=== PATIENT | male | born 1960 | race Caucasian/White ===

== ENCOUNTER 2020-03-31 09:32 | Outpatient (CLI) | payer OTHER, SELFPAY ==
--- NOTE | 2020-04-05 13:16 | WPDPFTINT ---
PFT Interpretation PFT Interpretation: This PFT met all criteria for ATS standards and reproducibility FEV/FVC pre bronchodilator 69% FEV1 77% or 2.60 liters FVC 79% or 3.73 liters TLC 90% RV 98% RV/TLC 37% DLCO 79% when adjusted for alveolar volume but not adjusted for hemoglobin Flow volume loops showed some expiratory coving Impression: Mild to moderate airflow obstruction with mildly decreased diffusion capacity. This pattern is suggestive of COPD. Clinical correlation is advised.
== END 2020-03-31 09:33 | disposition home or self-care (01) ==
PROVIDERS: PCP Family Medicine; Visit Provider Physician Assistant
DX: R06.00 Dyspnea, unspecified (principal); Z87.891 Personal history of nicotine dependence; R94.2 Abnormal results of pulmonary function studies
CPT/HCPCS: 94060; 94726; 94729

== ENCOUNTER → 2020-04-13 08:43 | Outpatient (CLI) | payer OTHER, SELFPAY ==
--- NOTE | ~2020-04-13 | CT_ITS ---
EXAMINATION:CT lung screening DATE: 04/13/2020 09:02 INDICATION: Personal history of tobacco dependence. Smoker who quit 14 years ago with 60 pack year hi story. TECHNIQUE: Computed tomography (CT) of the chest was performed without intravenous contrast. Automate d exposure control and iterative reconstruction technique were employed. The dose-length product (DLP ) was 409.00 mGy-cm. COMPARISON: CT abdomen and pelvis 12/02/2012 FINDINGS: There is mild emphysema. There is a 3 mm nodule in right lower lobe. No pleural effusion. T he heart size is normal. No pericardial effusion. There is diffuse hepatic steatosis. There are bernard es of cholecystectomy. There is mild thoracic spondylosis. IMPRESSION: 1. Lung-RADS category 2: Benign appearance or behavior. Continue annual screening with noncontrast lo w-dose chest CT in 12 months. Reviewed, dictated and finalized at location A. IMPRESSION: 1. Lung-RADS category 2: Benign appearance or behavior. Continue annual screeni ng with noncontrast low-dose chest CT in 12 months.
== END ==
PROVIDERS: PCP Family Medicine; Visit Provider Physician Assistant
DX: Z12.2 Encounter for screening for malignant neoplasm of respiratory organs (principal); Z87.891 Personal history of nicotine dependence
CPT/HCPCS: G0297

== ENCOUNTER 2020-05-26 02:14 | Outpatient (CLI) | payer OTHER, SELFPAY ==
[2020-05-26 18:46] LABS: SARS-CoV-2 RNA PCR Negative
== END 2020-05-26 02:15 | disposition home or self-care (01) ==
LOC: ANHCOVIDDT 02:14
PROVIDERS: PCP Family Medicine; Visit Provider Internal Medicine Gastroenterology
DX: Z01.812 Encounter for preprocedural laboratory examination (principal); Z20.828 Contact with and (suspected) exposure to other viral communicable diseases
CPT/HCPCS: 87635; C9803; U0003

== ENCOUNTER 2020-05-29 01:25 | Day surgery (SDC) | payer OTHER, SELFPAY ==
[2020-05-24 10:22] VITALS: BMI 43.0
[2020-05-29 06:20] VITALS: BP 156/90; PULSE 97; RESP 20; TEMP 36.4; O2SAT 95
[2020-05-29 06:23] VITALS: BMI 42.5
[2020-05-29] MEDS: LACTATED RINGERS 1,000 ML 150 ML IV CONT (06:34)
--- NOTE | 2020-05-29 06:41 | WPDANESEPPF ---
Anes - Initial Pre Proc Eval Procedure: Operation Date: 05/29/20 07:30 Proposed Procedures p Screening Colonoscopy - Zacarias Dang MD Date/Time: 05/29/20 06:41 Surgeon: Zacarias Dang MD Pre Op Diagnosis: neoplasm screening Patient Data Age: 59 Gender: M Height: 5 ft 10 in Weight: 134.5 kg Allergies Allergy/AdvReac Type Severity Reaction Status Date / Time No Known Allergies Allergy Verified 05/29/20 06:22 Home Medications Medication Instructions Recorded Confirmed Type losartan 50 mg-hydrochlorothiazide 1 tablet PO DAILY #90 tablet 04/07/20 05/24/20 Rx 12.5 mg tablet fluticasone fur. 100 mcg-umeclid 1 inh INHALATION DAILY #60 ea 04/24/20 05/24/20 Rx 62.5 mcg-vilant 25 mcg inhalat.powder albuterol sulfate 1 puff INHALATION PRN PRN 05/24/20 05/24/20 History naproxen sodium [Aleve] 220 mg PO BID PRN 05/24/20 05/24/20 History Patient hx anesthesia problems: none Family hx anesthesia problems: none PMFSH Past Medical History Medical History Elevated blood pressure reading in office without diagnosis of hypertension History of tobacco use Surgical History Surgical History History of laparoscopic cholecystectomy History of repair of anterior cruciate ligament of left knee History of umbilical hernia repair Hx of meniscectomy of right knee Family History Family History Mother Patient's mother is in good health Other Family history of thyroid disease Hypertension Social History Social History Social History: Smoking packs per day: 1.5 Smoking cigarettes per day: 30.0 Years smoked: 40 Smoking pack-years: 60.00 Smoking status: Former smoker Tobacco type: cigarettes Second hand tobacco smoke exposure: No Smoking end date: 06/16/15 Alcohol intake: never Substance use: never Substance use type: does not use Living arrangements: with family Gender identity (if verbalized by the patient): Male Spiritual care concerns: No Anes - Eval Final PreProcedure Day of Procedure 05/29/20 06:41 Patient weight: morbidly obese Heart: regular rate and rhythm Lungs: clear to auscultation Airway: Mallampati scale class II Neurological: alert and oriented Last oral intake: >/= 8 hours ASA classification: III Emergent: no Anesthetic plan: proceed Anesthesia type and monitoring: general GIVS and standard monitoring Informed Consent: The patient's anesthetic plan and its attendant risks and benefits were discussed with the patient/family/POA. Questions were solicited and answers provided to the satisfaction of the patient/family/POA.
--- NOTE | 2020-05-29 07:36 | PM.HPGS ---
History of Present Illness History of Present Illness Consent: Risks, benefits, and alternatives have been discussed and questions answered. Patient agrees to proceed with procedure. Chief complaint: neoplasm screening Narrative: Sheldon Caldwell is a 59 year old male with last colonoscopy 8 years ago Review of Systems Constitutional: Constitutional: Denies headache(s) and Denies weakness Eyes: Eyes: Denies blurry vision ENT: Reports Normal hearing present, Denies headache(s) and Denies neck pain Cardiovascular: Cardiovascular: Denies chest pain and Denies dyspnea Respiratory: Respiratory: Denies dyspnea Gastrointestinal: Gastrointestinal: Reports no additional gastrointestinal complaints Genitourinary: Genitourinary: Denies dysuria Musculoskeletal: Musculoskeletal: Denies neck pain Integumentary/Breasts: Skin/Breast: Denies dry skin Neurologic: Reports Normal hearing present, Denies headache(s) and Denies weakness Psychiatric: Psychiatric: Denies anxiety Endocrine: Endocrine: Denies change in body appearance Hematologic/Lymphatic: Hematologic/Lymphatic: Denies easy bleeding Allergic/Immunologic: Allergic/Immunologic: Denies urticaria PMFSH Past Medical History Medical History Elevated blood pressure reading in office without diagnosis of hypertension History of tobacco use Surgical History Surgical History History of laparoscopic cholecystectomy History of repair of anterior cruciate ligament of left knee History of umbilical hernia repair Hx of meniscectomy of right knee Family History Family History Mother Patient's mother is in good health Other Family history of thyroid disease Hypertension Social History Social History Social History: Smoking packs per day: 1.5 Smoking cigarettes per day: 30.0 Years smoked: 40 Smoking pack-years: 60.00 Smoking status: Former smoker Tobacco type: cigarettes Second hand tobacco smoke exposure: No Smoking end date: 06/16/15 Alcohol intake: never Substance use: never Substance use type: does not use Living arrangements: with family Gender identity (if verbalized by the patient): Male Spiritual care concerns: No Meds Home Medications and Allergies Home Medications Medication Instructions Recorded Confirmed Type losartan 50 mg-hydrochlorothiazide 1 tablet PO DAILY #90 tablet 04/07/20 05/24/20 Rx 12.5 mg tablet fluticasone fur. 100 mcg-umeclid 1 inh INHALATION DAILY #60 ea 04/24/20 05/24/20 Rx 62.5 mcg-vilant 25 mcg inhalat.powder albuterol sulfate 1 puff INHALATION PRN PRN 05/24/20 05/24/20 History naproxen sodium [Aleve] 220 mg PO BID PRN 05/24/20 05/24/20 History Allergies Allergy/AdvReac Type Severity Reaction Status Date / Time No Known Allergies Allergy Verified 05/29/20 06:22 Exam Const: General: comfortable and no acute distress HENMT: General nose exam: Normal nares present Eyes: General: appearance normal, both eyes and all related structures Neck: Neck: no JVD Resp: Auscultation: clear to auscultation bilaterally Cardio: Rate: regular rate Rhythm: regular rhythm GI: Inspection: non-distended GI Palp: Yes Soft to palpation Skin: General skin exam: normal color Neuro: General: gait normal Speech: normal speech Extrem: General: normal to inspection Psych: Mental Status: mental status grossly normal Assessment and Plan Assessment and plan (1) Colon cancer screening: Code(s): Z12.11 - Encounter for screening for malignant neoplasm of colon Status: Acute Assessment and Plan: will proceed with colonoscopy
[2020-05-29 08:05] VITALS: BP 101/48; PULSE 96; RESP 17; O2SAT 99
[2020-05-29 08:15] VITALS: BP 107/66; PULSE 88; RESP 19; O2SAT 98
[2020-05-29 08:25] VITALS: BP 125/53; PULSE 82; RESP 20; O2SAT 97
== END 2020-05-29 08:33 | disposition home or self-care (01) ==
PROVIDERS: PCP Family Medicine; Visit Provider Internal Medicine Gastroenterology
PROC: 0DJD8ZZ Inspection of Lower Intestinal Tract, Via Natural or Artificial Opening Endoscopic (ICD-10-PCS; CPT 45378; principal; 2020-05-29 07:30)
DX: Z12.11 Encounter for screening for malignant neoplasm of colon (principal); K57.30 Diverticulosis of large intestine without perforation or abscess without bleeding; K64.8 Other hemorrhoids; K63.5 Polyp of colon; Z79.51 Long term (current) use of inhaled steroids; Z87.891 Personal history of nicotine dependence; E66.9 Obesity, unspecified; Z68.41 Body mass index [BMI] 40.0-44.9, adult
CPT/HCPCS: 45380; 88305; J2704; J7120

== ENCOUNTER → 2020-11-15 00:46 | Outpatient (CLI) | payer OTHER, SELFPAY ==
[2020-11-15 17:41] LABS: SARS-CoV-2 RNA PCR Negative
== END ==
PROVIDERS: PCP Family Medicine; Visit Provider Internal Medicine Critical Care Medicine
DX: Z01.812 Encounter for preprocedural laboratory examination (principal); Z20.822 Contact with and (suspected) exposure to COVID-19
CPT/HCPCS: C9803; U0003; U0005

== ENCOUNTER 2020-11-17 07:26 | Outpatient (CLI) | payer OTHER, SELFPAY ==
--- NOTE | 2020-12-11 08:28 | WPDSLEEPSTUD ---
Sleep Study Date of Study: 11/17/20 Ordering Provider: Laina Grider PA-C Interpreting Physician: Jayne Marks MD Sleep Study Type: Split Polysomnogram Height: 1.52 m Weight: 131.542 kg Body Mass Index: 56.6 Neck Circumference (inches): 20.5 Colony: 17 Reason for Sleep Study Poor quality sleep, tired in the day. Sleep History Sheldon Calwdell is a 60 yo man who rarely awakens from sleep feeling short of breath. He occasionally awakens at night with heartburn belching or coughing. he constantly snores and frequently this is loud enough that others complain. He occasionally has trouble sleep with a cold. Occasionally wakes up gasping for breath at night. He frequently has breathing problems at night observed by others. He occasionally sweats excessively at night. He rarely notices his heart pounding or beating irregularly at night. He occasionally falls asleep during the day, frequently falls asleep involuntarily and rarely falls asleep while driving. He does not fall asleep while exerting physical effort. He rarely has loss of muscle tone with strong emotion. He rarely has daytime difficulty at work due to excessive sleepiness. He does not feel paralyzed on waking or falling asleep. He occasionally has vivid dreamlike scenes upon awakening or falling asleep. He rarely feels afraid to go to sleep. He rarely has nightmares. He occasionally remembers his dreams. He constantly has racing thoughts. He rarely feels sad or depressed. He occasionally has anxiety, muscular tension, occasionally notices parts of his body jerking he occasionally kicks at night. He frequently has crawling and aching feelings in his legs and frequently has leg pain during the night. He rarely has morning jaw pain. He rarely grinds his teeth during sleep. He frequently is bothered by pain during the day, frequently awakened by pain at night and frequently wakes up feeling stiff in the morning. Occasionally wakes up with sore achy muscles. He frequently wakes up with pain in the neck and spine. He has fatigue and sexual problems. Normal bedtime is between 9:00 p.m. and 7:00 p.m. falling asleep on the couch in just a few minutes. He wakes once at night moving from the couch to the bed. During that awakening he goes to the bathroom, sits up on the couch and looks at his phone for a short time before returning to sleep. he wakes in the morning at 5:00 a.m.. On the weekends, he goes to bed later, 11:00 p.m. to 12 midnight and wakes between 6:00 a.m. and 7:00 a.m.. He estimates getting 3-4 hours of sleep but sometimes as many as 7-8 hours. He awakens every hour. He takes naps in the afternoon or evening. Sometimes a short nap can be refreshing. He feels better in the morning compared other times of day Habits: Quit tobacco for 14 years ago. Caffeine 2-3 cups of coffee a day. Alcohol 8-10 beverages 1 to 2 times a month. No recreational drugs. [facility] Past Medical History Medical History (Updated 12/11/20 @ 08:56 by Jayne Marks MD) Colon cancer screening COPD (chronic obstructive pulmonary disease) History of tobacco use HTN (hypertension) Prediabetes Surgical History Surgical History History of laparoscopic cholecystectomy History of repair of anterior cruciate ligament of left knee History of umbilical hernia repair Hx of meniscectomy of right knee Family History Family History Mother Patient's mother is in good health Other Family history of thyroid disease Hypertension Social History Social History (Updated 10/19/20 @ 16:10 by Karis Moreno CMA) Social History: Smoking packs per day: 1.5 Smoking cigarettes per day: 30.0 Years smoked: 40 Smoking pack-years: 60.00 Tobacco type: cigarettes Second hand tobacco smoke exposure: No Smoking end date: 06/16/15 Alcohol intake:
[2020-12-11 08:31] VITALS: BMI 56.6
== END 2020-11-18 07:21 | disposition home or self-care (01) ==
LOC: ANHCSM 07:27
PROVIDERS: PCP Family Medicine; Visit Provider Physician Assistant
DX: F51.8 Other sleep disorders not due to a substance or known physiological condition (principal); G47.10 Hypersomnia, unspecified; G47.33 Obstructive sleep apnea (adult) (pediatric)
CPT/HCPCS: 95811

== ENCOUNTER 2021-04-23 15:46 | Outpatient (CLI) | payer OTHER, SELFPAY ==
--- NOTE | ~2021-04-23 | CT_ITS ---
EXAMINATION:CT lung screening DATE: 04/23/2021 16:04 INDICATION: Personal history of nicotine dependence. Smoker who quit 5.5 years ago with 40 pack year history. TECHNIQUE: Computed tomography (CT) of the chest was performed without intravenous contrast. Automate d exposure control and iterative reconstruction technique were employed. The dose-length product (DLP ) was 361.31 mGy-cm. COMPARISON: Chest CT 04/13/2020 FINDINGS: There is mild emphysema. There is mild atelectasis in lingula. There are multiple 1-2 mm no dules in the lungs. There is a stable 3 mm nodule in right lower lobe. There is a stable 5 mm nodule in left upper lobe. No pleural effusion. The heart size is normal. No pericardial effusion. There is moderate thoracic spondylosis. There is a hemangioma in T7 vertebral body. IMPRESSION: 1. Lung-RADS category 2: Benign appearance or behavior. Continue annual screening with noncontrast lo w-dose chest CT in 12 months. Reviewed, dictated and finalized at location A. HANDISE COLLECTOR IMPRESSION: 1. Lung-RADS category 2: Benign appearance or behavior. Continue annual screeni ng with noncontrast low-dose chest CT in 12 months.
== END 2021-04-23 15:47 ==
PROVIDERS: PCP Physician Assistant; Visit Provider Physician Assistant
DX: Z12.2 Encounter for screening for malignant neoplasm of respiratory organs (principal); Z87.891 Personal history of nicotine dependence
CPT/HCPCS: 71271

== ENCOUNTER 2021-08-14 09:52 | Outpatient (CLI) | payer OTHER, SELFPAY ==
--- NOTE | ~2021-08-14 | XR_ITS ---
XR foot LT standing 2V DATE: 08/14/2021 11:07 INDICATION: Osteoarthritis TECHNIQUE: Weight bearing AP and lateral views COMPARISON: None FINDINGS: Plantar and posterior moderate calcaneal enthesopathy, without associated erosive change or periostitis. There is moderate osteoarthritic change at the tibiotalar joint and mild osteoarthritis at the first metatarsophalangeal joint. No fracture or dislocation, periosteal reaction or bone destruction. No erosive changes. IMPRESSION: Plantar and posterior calcaneal enthesopathy Osteoarthritic change at tibiotalar and first metatarsophalangeal joints Reviewed, dictated and finalized at location A. ROOM GEAR MACHINE OPERATOR
--- NOTE | ~2021-08-14 | XR_ITS ---
XR sacroiliac joints min 3V DATE: 08/14/2021 11:07 INDICATION: Pain. Osteoarthritis. TECHNIQUE: AP and bilateral oblique views COMPARISON: None FINDINGS: There is mild degenerative change at the sacroiliac joints. No fracture or dislocation, ero sive change or ankylosis. No pelvic fracture or bone destruction is detected. IMPRESSION: Mild degenerative change Reviewed, dictated and finalized at Location A. Reviewed, dictated and finalized at location A. Y PAINTING MACHINE OPERATOR IMPRESSION: Mild degenerative change
--- NOTE | ~2021-08-14 | XR_ITS ---
XR hand BI arthritis min 3V DATE: 08/14/2021 11:07 INDICATION: Pain. Osteoarthritis. TECHNIQUE: 4 views of each hand. COMPARISON: None FINDINGS: Old healed boxer's fracture deformity of the right fifth metacarpal neck. No recent fracture or dislocation, periosteal reaction or bone destruction or erosive change. Mild bilateral osteoarthritis. IMPRESSION: Mild osteoarthritis Reviewed, dictated and finalized at location A. MANAGEMENT MANAGER IMPRESSION: Mild osteoarthritis
--- NOTE | ~2021-08-14 | XR_ITS ---
XR foot RT standing 2V DATE: 08/14/2021 11:07 INDICATION: Pain. Osteoarthritis. TECHNIQUE: Weight bearing AP and lateral views COMPARISON: None FINDINGS: There is plantar and posterior calcaneal enthesopathy. There is mild osteoarthritis. There is a submillimeter radiopacity overlying the second metatarsophalangeal joint, possibly an intr a-articular loose body. No fracture or dislocation, periosteal reaction or bone destruction. IMPRESSION: Plantar and posterior calcaneal enthesopathy Mild osteophyte is at first metatarsophalangeal joint Possible radiopaque loose body at second metatarsophalangeal joint Reviewed, dictated and finalized at location A. SH BLENDER
--- NOTE | 2021-08-14 14:13 | WPDPFTINT ---
PFT Procedure Performed PFT Procedure Performed Plethysmography (Lung Vol) Diffusing Cap (DLCO) Flow Vol Loop Spirometry w/o Bronchodil PFT Interpretation Lung volumes were measured with the body plethysmography method. Lung volumes are unremarkable. Spirometry showed diminished expiratory flow rates and a borderline FEV1 to FVC ratio of 70%, consistent with mild airway obstruction. No bronchodilator study was carried out. The lung diffusion capacity is within normal range. In comparison to previous study in 03/2020, there has been no significant change in FVC, FEV1, TLC or DLCO. Impression: Probable mild obstructive airway disease, unchanged since 2019.
== END 2021-08-14 09:53 | disposition home or self-care (01) ==
PROVIDERS: PCP Family Medicine; Visit Provider Nurse Practitioner Gerontology
DX: M19.90 Unspecified osteoarthritis, unspecified site (principal); R06.02 Shortness of breath; M19.041 Primary osteoarthritis, right hand; M19.042 Primary osteoarthritis, left hand; M53.3 Sacrococcygeal disorders, not elsewhere classified; M77.31 Calcaneal spur, right foot; M19.071 Primary osteoarthritis, right ankle and foot
CPT/HCPCS: 72202; 73130; 73620; 94375; 94726; 94729

== ENCOUNTER 2022-08-13 16:16 | Outpatient (CLI) | payer OTHER, SELFPAY ==
--- NOTE | ~2022-08-13 | CT_ITS ---
EXAMINATION: CT abdomen pelvis wo con DATE: 08/13/2022 16:39 INDICATION: Abdomen pain TECHNIQUE: Computed tomography (CT) of the abdomen and pelvis was performed without intravenous contr ast. The dose-length product was 1611.33 mGy-cm. Automated exposure control and iterative reconstruct ion technique were employed. COMPARISON: CT dated 12/02/2012 FINDINGS: No significant pleural or pericardial effusion. Heart size normal. Fatty infiltration of th e liver. Status post cholecystectomy. The spleen, pancreas, adrenal glands and and kidneys are unrema rkable. Nonobstructive bowel gas pattern. No free air or free fluid. No abnormal pelvic masses or flu id collections. Nonobstructive bowel pattern. No acute bone or joint abnormality. No renal/ureteral s tones or hydronephrosis. IMPRESSION: 1. No acute abdominal abnormality. Reviewed, dictated and finalized at location B. STIGATOR OPERATOR
== END 2022-08-13 16:17 | disposition home or self-care (01) ==
PROVIDERS: PCP Family Medicine; Visit Provider Nurse Practitioner Gerontology
DX: R10.9 Unspecified abdominal pain (principal)
CPT/HCPCS: 74176

== ENCOUNTER 2023-05-14 01:24 | Day surgery (SDC) | payer OTHER, SELFPAY ==
[2023-05-05 12:20] VITALS: BMI 43.0
--- NOTE | 2023-05-05 12:27 | PC.NURSE ---
Report to the Outpatient Waiting Room, entrance under the green pavilion located off [facility], at time 1000 on date 05/14/23. Planned Procedure Time: 1100. Time changes happen often and if your time is changed the preop area will call you the afternoon before. - You and your visitor will be asked to self-screen and do not enter if you have any COVID symptoms. - A mask is optional within the hospital at this time. Patients may have LIGHT BREAKFAST. Take the following medications with a SIP of water the morning of surgery: PRESCRIBED DO NOT STOP ANY OF YOUR OTHER PRESCRIPTION MEDICATIONS PRIOR TO SURGERY ?EXCEPT THE FOLLOWING Medications to discontinue per physician: N/A Date to take last dose: N/A Please no make-up, nail rwandan, hairspray, perfume, deodorant, or body powder the day of surgery. No jewelry (including any body piercings) or valuables the day of surgery, leave them at home. Please take a shower or bath the night before, or the morning of, surgery with an antibacterial soap. Wear comfortable, loose fitting clothing. - Jewelry must be removed prior to entering the operating room. Rings and piercings that are not removed may be cut off. - The hospital will not accept responsibility for valuables. - Please leave all valuables, including medications, at home the day of surgery. YOU MAY DRIVE YOURSELF HOME AFTER SURGERY. Follow any additional instructions given to you from your surgeon. If you or anyone in your household have experienced Covid symptoms in the past week, please notify your surgeon or the nurse liaison at the phone number below for possible testing. Telephone instructions given to PT - DANETTE MIRZA and asked if any additional questions and then verbalized understanding. Patient advised to call surgeon office or pre surgery nurse liaison [phone] if any additional questions.
[2023-05-14 06:45] VITALS: BP 133/81; PULSE 101; RESP 16; TEMP 36.2; O2SAT 97
--- NOTE | 2023-05-14 07:23 | WPDHPUPDATE1 ---
History and Physical Update Update Date/Time: 05/14/23 07:23 History and Physical has been reviewed, including an updated exam of the patient. There are NO changes in the patient's condition. Risks, benefits, and alternatives have been discussed and questions answered. Patient agrees to proceed with procedure.
[2023-05-14 07:35] VITALS: BP 148/82; PULSE 95; RESP 20; O2SAT 99
[2023-05-14 07:45] VITALS: BP 152/83; PULSE 98; O2SAT 99
[2023-05-14] MEDS: LIDO 1%/EPINEPHRINE 1:100,000 50 ML VIAL INFILTRATE (07:52)
[2023-05-14] MEDS: BACITRACIN OINTMENT 15 GM TUBE 1 APPLIC TOPICAL (07:53)
[2023-05-14 07:55] VITALS: BP 153/94; PULSE 87; O2SAT 99
[2023-05-14 08:03] VITALS: BP 127/80; PULSE 87; O2SAT 99
[2023-05-14 08:11] VITALS: BP 139/86; PULSE 86; RESP 18; O2SAT 99
--- NOTE | 2023-05-14 08:15 | W.PM.PROC2 ---
Procedure Note - Detailed Date of Procedure 05/14/23 Pre-op Diagnosis right Carpal Tunnel syndrome Post-op Diagnosis Same Procedure Performed Right open carpal tunnel release Surgeon Mansoor Hutchinson MD Anesthesia Local Description of Procedure The patient's right volar wrist was marked with his consent in the holding area. He was taken to the operating room where he was placed supine on the operating table. The extremity was prepped draped usual fashion. A time-out was held and confirmed. The site was marked for incision and locally infiltrated with 1% lidocaine with epinephrine. The tourniquet was inflated to 250 mmHg. The incision was made as marked. Blunt dissection revealed the palmar aponeurosis this and the transverse retinaculum were incised with a 15. Blade. Some local anesthetic was a reintroduced at that level. The retinaculum was divided with a 15 blade and scissors. A complete release was achieved. There was no unusual anatomy noted. The tourniquet was released at 8 minutes and the skin wound closed with interrupted 4-0 nylon suture. The usual bandage was applied. The is discharged home with instructions of wound care and follow-up as a prescription for hydrocodone 5/325 6. Estimated Blood Loss 5 Tourniquet Time 8 Drains No Packing No Pathology None sent Complications No immediate complications Condition Stable Disposition Same day
== END 2023-05-14 08:38 | disposition home or self-care (01) ==
PROVIDERS: PCP Family Medicine; Visit Provider Plastic Surgery
PROC: (CPT 64721; principal; 2023-05-14 07:30)
DX: G56.01 Carpal tunnel syndrome, right upper limb (principal); K21.9 Gastro-esophageal reflux disease without esophagitis; Z90.49 Acquired absence of other specified parts of digestive tract
CPT/HCPCS: 64721; A9270

== ENCOUNTER 2023-06-04 01:58 | Day surgery (SDC) | payer OTHER, SELFPAY ==
--- NOTE | 2023-05-29 14:36 | PC.NURSE ---
Report to the Outpatient Waiting Room, entrance under the green pavilion located off [facility], at time 1000 on date 06/04/23. Planned Procedure Time: 1100. Time changes happen often and if your time is changed the preop area will call you the afternoon before. - You and your visitor will be asked to self-screen and do not enter if you have any COVID symptoms. - A mask is optional within the hospital at this time. Patients may have LIGHT BREAKFAST Take the following medications with a SIP of water the morning of surgery: PRESCRIBED DO NOT STOP ANY OF YOUR OTHER PRESCRIPTION MEDICATIONS PRIOR TO SURGERY ?EXCEPT THE FOLLOWING Medications to discontinue per physician: N/A Date to take last dose: N/A Please no make-up, nail gabonese, hairspray, perfume, deodorant, or body powder the day of surgery. No jewelry (including any body piercings) or valuables the day of surgery, leave them at home. Please take a shower or bath the night before, or the morning of, surgery with an antibacterial soap. Wear comfortable, loose fitting clothing. - Jewelry must be removed prior to entering the operating room. Rings and piercings that are not removed may be cut off. - The hospital will not accept responsibility for valuables. - Please leave all valuables, including medications, at home the day of surgery. YOU MAY DRIVE YOURSELF HOME AFTER SURGERY. Follow any additional instructions given to you from your surgeon. If you or anyone in your household have experienced Covid symptoms in the past week, please notify your surgeon or the nurse liaison at the phone number below for possible testing. Telephone instructions given to PT - DANETTE MIRZA and asked if any additional questions and then verbalized understanding. Patient advised to call surgeon office or pre surgery nurse liaison [phone] if any additional questions.
[2023-05-29 14:38] VITALS: BMI 44.0
--- NOTE | 2023-06-04 07:20 | WPDHPUPDATE1 ---
History and Physical Update Update Date/Time: 06/04/23 07:20 History and Physical has been reviewed, including an updated exam of the patient. There are NO changes in the patient's condition. Risks, benefits, and alternatives have been discussed and questions answered. Patient agrees to proceed with procedure.
--- NOTE | 2023-06-04 07:21 | WPDHPUPDATE1 ---
History and Physical Update Update Date/Time: 06/04/23 07:21 History and Physical has been reviewed, including an updated exam of the patient. There are NO changes in the patient's condition. Risks, benefits, and alternatives have been discussed and questions answered. Patient agrees to proceed with procedure.
[2023-06-04 09:06] VITALS: BP 137/84; PULSE 79; RESP 14; O2SAT 97
[2023-06-04] MEDS: LIDO 1%/EPINEPHRINE 1:100,000 50 ML VIAL INFILTRATE (09:15)
[2023-06-04 09:16] VITALS: BP 147/93; PULSE 79; RESP 14; O2SAT 97
[2023-06-04 09:23] VITALS: BP 126/88; PULSE 78; RESP 16; TEMP 36; O2SAT 99
[2023-06-04 09:26] VITALS: BP 135/84; PULSE 79; RESP 14; O2SAT 98
[2023-06-04 09:30] VITALS: BP 148/82; PULSE 75; RESP 18; O2SAT 100
--- NOTE | 2023-06-04 09:48 | W.PM.PROC2 ---
Procedure Note - Detailed Date of Procedure 06/04/23 Pre-op Diagnosis Left Carpal Tunnel Syndrome Post-op Diagnosis Same Procedure Performed Left open carpal tunnel release Surgeon Mansoor Hutchinson MD Anesthesia Local Description of Procedure The left carpal tunnel wound was marked on the patient waiting in the holding area with his consent. He was taken to the operating room where he was placed supine on the operating table. The left upper extremity was prepped and draped in usual fashion. The time-out was held and confirmed. Site was marked for the incision and locally infiltrated with 1% lidocaine with epinephrine. Approximately 6 minutes was allowed for hemostatic effect. The incision was made as marked without the use of tourniquet. Blunt dissection through the subcutaneous tissue revealed the palmar aponeurosis. This and the transverse retinaculum were incised with a 15. Blade opening canal. Under 3 point retraction the ligament was divided distally and proximally to completely release the retinaculum. No unusual anatomy was noted. The skin was then closed with interrupted 4-0 nylon suture. The usual bandage was applied. Was discharged from the operating room in stable condition. Has instructions in wound care and follow-up and a prescription for hydrocodone 5/325 5. Estimated Blood Loss 2 Drains No Packing No Pathology None sent Complications No immediate complications Condition Stable Disposition Same day
== END 2023-06-04 09:55 | disposition home or self-care (01) ==
PROVIDERS: PCP Family Medicine; Visit Provider Plastic Surgery
PROC: (CPT 64721; principal; 2023-06-04 09:00)
DX: G56.02 Carpal tunnel syndrome, left upper limb (principal)
CPT/HCPCS: 64721; A9270

== ENCOUNTER 2023-12-08 14:22 | Outpatient (CLI) | payer OTHER, SELFPAY ==
--- NOTE | ~2023-12-08 | CT_ITS ---
CT Scan of the Chest without Contrast: Clinical Indication: Lung cancer screening, nicotine dependence Technique: Contiguous sections were acquired throughout the chest without intravenous contrast. Dose reduction technique was used on this scan by utilizing automated exposure control and iterative recon struction technique. The dose-length product (DLP) was 478.50 mGy-cm. COMPARISON: 04/23/2021 Findings: There is no evidence of any significant mediastinal, hilar or axillary lymphadenopathy. The mediastin al soft tissues appear normal. There is no evidence of pleural or pericardial effusion. Several scattered tiny 1-2 mm pulmonary nodules are present, similar to prior exam. Images through the upper abdomen reveal no abnormalities. Impression: Lung RADS 2: Benign appearance. 12 month follow-up screening CT advised. Reviewed, dictated and finalized at [facility]. Impression: Lung RADS 2: Benign appearance. 12 month follow-up screening CT advised.
== END 2023-12-08 14:23 | disposition home or self-care (01) ==
LOC: ANHIMG 14:23
PROVIDERS: PCP Family Medicine; Visit Provider Physician Assistant
DX: Z12.2 Encounter for screening for malignant neoplasm of respiratory organs (principal); Z87.891 Personal history of nicotine dependence
CPT/HCPCS: 71271

== ENCOUNTER 2025-02-10 15:36 | Outpatient (CLI) | payer OTHER, SELFPAY ==
--- NOTE | 2025-02-10 | ECG_ITS ---
Test Date: 2025-02-10 16:08:44 Measurements Intervals [place] Rate: 71 P: 138 NE: 169 QRS: 162 QRSD: 118 T: 154 QT: 354 QTc: 385 Interpretive Statements SINUS RHYTHM INCOMPLETE RIGHT BUNDLE BRANCH BLOCK ARM LEADS REVERSED BORDERLINE ECG No previous ECG available for comparison Electronically Signed On 02-10-2025 16:13:14 CDT by Scooter Bauman D.O.
--- OUTSIDE RECORDS SUMMARY | 2025-02-10 15:41 | XMS_ITS | Clinical Summary ---
Author Organization [facility] Address [address] [place] [id number] Care Team Providers Care Fight Manager Name Role Phone Unavailable Primary Care Provider Unavailabl e Social History Tobacco Use Types Packs/Day Years Used Date Smoking Tobacco: Never Assessed Sex and Gender Information Value Date Recorded Sex Assigned at Not on file Legal Sex Male 7:08 PM CDT Gender Identity Not on file Sexual Orientation Not on file Plan of Treatment Health Maintenance Due Date Last Done Comments Colorectal Cancer Screening Colonoscopy (10 Years) 1962 Annual Physical 1965 Hepatitis C 1980 DTaP, Tdap and Td Vaccines ( 1 - Tdap) 1981 Pneumococcal Vaccine: 50+ Ye ars (1 of 1 - PCV) 2012 Zoster Vaccines (1 of 2) 2012 COVID-19 Vaccine ( - 2023-2 5 season) 2024 RSV Immunization or 60+ Years (1 - 1-dose 75+ series) 2037 Meningococcal B Vaccine Aged Out No l onger eligible based on patient's age to complete this topic Meningococcal Vaccine Aged Out No lavon jeff eligible based on patient's age to complete this topic RSV Immunizations Under 20 Months Aged Out No longer eligible based on patient's age to complete this topic
== END 2025-02-10 15:37 | disposition home or self-care (01) ==
LOC: ANHCARD 15:39
PROVIDERS: PCP Family Medicine; Visit Provider Nurse Anesthetist, Certified Registered
DX: Z01.818 Encounter for other preprocedural examination (principal); I45.10 Unspecified right bundle-branch block
CPT/HCPCS: 93005